=== PATIENT | female | born 1950 | race Two or more races ===

== ENCOUNTER 2024-01-04 15:31 | Inpatient (IN) | payer OTHER ==
[~2024-01-04] VITALS: Ht 157.5 cm; Wt 88.0 kg
[2024-01-04] MEDS ORDERED: METFORMIN HCL1000 M2 (15:56)
[2024-01-04] MEDS ORDERED: METFORMIN HCL1000 M2 PO (15:57)
[2024-01-04] MEDS ORDERED: PEPCID AC20 MG (15:59)
[2024-01-04] MEDS ORDERED: LOSARTAN POTASS50 MG (15:59)
[2024-01-04] MEDS ORDERED: GLIPIZIDE XL5 MG (16:00)
[2024-01-04] MEDS ORDERED: SYNTHROID100 MCG (16:00)
[2024-01-04] MEDS ORDERED: CRESTOR5 MG (16:00)
[2024-01-04] MEDS ORDERED: 0.9 % SODIUM CHLORIDE 500 ML IV ONE (17:45)
[2024-01-04 18:29] LABS: MEAN CORPUSCULAR HGB CONC 31.5 g/dl (32.0-36.0); PLATELET COUNT 184 K/uL (150-450); RED BLOOD COUNT 3.13 M/uL (4.00-6.00); RED CELL DISTRIBUTION WIDTH 19.9 % (11.5-14.5)
[2024-01-04 18:32] LABS: MEAN CORPUSCULAR HEMOGLOBIN 24.6 pg (27.00-32.0)
[2024-01-04 18:37] LABS: HEMATOCRIT 24.4 % (36.0-45.00); HEMOGLOBIN 7.7 g/dL (12.0-15.00)
[2024-01-04 18:39] LABS: INR 1.1; PARTIAL THROMBOPLASTIN TIME 27.4 SECONDS (22.0-34.0); PROTHROMBIN TIME 11.5 SECONDS (9.0-11.5)
[2024-01-04 18:41] LABS: CALCIUM 9.6 mg/dL (8.5-10.1); CREATININE SERUM 0.98 mg/dL (0.55-1.02); GFR 55.79; POTASSIUM 4.08 mEq/L (3.5-5.1)
[2024-01-04] MEDS ORDERED: FUROsemide 20 MG/2 ML VIAL IV SCH (19:45)
[2024-01-04 20:44] LABS: PH,URINE 6.5 (5.0-8.0); URINE APPEARANCE Clear; URINE BILIRRUBIN Negative (NEGATIVE); URINE BLOOD Negative; URINE COLOR Yellow; URINE GLUCOSE Negative (NEGATIVE); URINE LEUKOCYTE Small; URINE NITRATE Negative; URINE PROTEIN Trace (NEGATIVE)
[2024-01-04 20:47] LABS: URINE BACTERIA 1361.8 uL (0.0-1933); URINE EPITHELIAL CELLS 18.3 uL (0.0-38.8); URINE RBC 2.4 uL (0.0-20.8); URINE WBC 36.1 uL (0.0-23.2)
[2024-01-04] MEDS ORDERED: ACETAMINOPHEN 500 MG GEL..CAP PO PRN (23:45)
[2024-01-04] MEDS ORDERED: 0.9 % SODIUM CHLORIDE 1,000 ML IV SCH (23:45)
[2024-01-04] MEDS ORDERED: INSULIN LISPRO 1,000 UNIT/10 ML UNITS SUBCUTANEO PRN (23:45)
[2024-01-04] MEDS ORDERED: DEXTROSE 50 % IN WATER 0.5 G/ML DISP.SYRIN IV PRN (23:45)
[2024-01-04] MEDS ORDERED: ONDANSETRON HCL 4 MG in 0.9 % SODIUM CHLORIDE 50 ML IV PRN (23:45)
[2024-01-05] MEDS ORDERED: LEVOTHYROXINE SODIUM 100 MCG TABLET PO SCH (06:00)
[2024-01-05] MEDS ORDERED: PANTOPRAZOLE SODIUM 40 MG/VIAL VIAL IV SCH (09:00)
[2024-01-05] MEDS ORDERED: LOSARTAN POTASSIUM 50 MG TABLET PO SCH (09:00)
[2024-01-05 18:26] LABS: ob NEGATIVE (NEGATIVE)
[2024-01-06 11:31] LABS: HEMATOCRIT 30.5 % (36.0-45.00); MEAN CELL VOLUME 80.8 fL (80.00-100.00); MEAN CORPUSCULAR HGB CONC 31.6 g/dl (32.0-36.0); PLATELET COUNT 132 K/uL (150-450); RED BLOOD COUNT 3.78 M/uL (4.00-6.00); RED CELL DISTRIBUTION WIDTH 18.8 % (11.5-14.5)
[2024-01-06 11:46] LABS: MEAN CORPUSCULAR HEMOGLOBIN 25.3 pg (27.00-32.0)
[2024-01-06 11:47] LABS: HEMOGLOBIN 9.6 g/dL (12.0-15.00)
[2024-01-06] MEDS ORDERED: EPOETIN ALFA-EPBX 10,000 UNIT/ML VIAL (Retacrit) SUBCUTANEO STA (16:38)
[2024-01-06] MEDS ORDERED: SOD FERRIC GLUC COMPLX/SUCROSE 62.5 MG/5 ML AMPUL IV STA (16:39)
== END 2024-01-06 20:59 | disposition home or self-care (01) | DRG 812 ==
LOC: ER 15:31 → MEDI 23:38 → SEC-K 23:38 → MEDI 01-05 04:38
PROVIDERS: General Practice; Nurse Practitioner Family; ADMIT Internal Medicine; ATTEND Internal Medicine
PROC: 30233N1 Transfusion of Nonautologous Red Blood Cells into Peripheral Vein, Percutaneous Approach (ICD-10-PCS; principal; 2024-01-05)
DX: D64.9 Anemia, unspecified (principal); E78.5 Hyperlipidemia, unspecified; E03.9 Hypothyroidism, unspecified; E11.8 Type 2 diabetes mellitus with unspecified complications; Z79.4 Long term (current) use of insulin